=== PATIENT | female | born 1995 | race Caucasian/White ===

== ENCOUNTER 2019-03-05 23:44 | Emergency (ER) | payer OTHER ==
[~2019-03-05] VITALS: Ht 160 cm; Wt 56.7 kg
[2019-03-06 00:20] VITALS: Ht 160 cm; Wt 56.7 kg
[2019-03-06 00:43] VITALS: BP 145/89
== END 2019-03-06 00:43 | disposition other institution (70) ==
LOC: ED 23:44
DX: Z04.1 Encounter for examination and observation following transport accident (principal); V43.52XA Car driver injured in collision with other type car in traffic accident, initial encounter; Y93.I9 Activity, other involving external motion; Y92.413 State road as the place of occurrence of the external cause; Y99.8 Other external cause status